=== PATIENT | male | born 2000 | race African-American/Black ===

== ENCOUNTER 2021-06-25 14:08 | Emergency (ER) | payer SELFPAY ==
[~2021-06-25] VITALS: Ht 182.9 cm; Wt 103.8 kg
[2021-06-25 15:00] VITALS: BP 187/80
[2021-06-25 15:08] LABS: HEMOGLOBIN 14.6 g/dl (14.0-18.0); IMMATURE GRANULOCYTES 0.2 % (0.0-5.0); MEAN CORPUSCULAR HGB 28.7 pG CALC (26.0-32.0); MEAN CORPUSCULAR HGB CONC 32.8 g/dL CAL (32.0-36.0); NEUT# 8.73 thou/uL (1.82-7.42); RED BLOOD COUNT 5.09 mill/uL (4.70-6.10); RED CELL DISTRI WIDTH 12.4 % (11.5-15.5)
[2021-06-25 15:11] LABS: HEMATOCRIT 44.5 % (39.0-50.0); MEAN CELL VOLUME 87.4 fL CALC (80.0-100.0); URINE BILIRUBIN - DIPSTICK NEGATIVE (NEGATIVE); URINE BLOOD DIPSTICK NEGATIVE (NEGATIVE); URINE COLOR YELLOW; URINE GLUCOSE - DIPSTICK NEGATIVE (NEGATIVE); URINE KETONE NEGATIVE (NEGATIVE); URINE LEUK ESTERASE NEGATIVE (NEGATIVE); URINE PROTEIN - DIPSTICK NEGATIVE (NEG-TRACE); URINE UROBILINOGEN - DIPSTICK 0.2 E.U./dL (0.2)
[2021-06-25 15:13] LABS: URINE NITRITE - DIPSTICK NEGATIVE (Negative)
[2021-06-25 15:20] LABS: ALBUMIN 4.1 g/dL (3.2-5.0); BUN 8 mg/dL (9-20); BUN/CREATININE RATIO 10 (12-20 (CALC)); CHLORIDE 102 mmol/l (95-108); CREATININE 0.8 mg/dL (0.7-1.3); GFR > 60 ML/MIN (>=60 (CALC)); GFR FOR AFR.AMER. > 60 ML/MIN (>=60 (CALC)); POTASSIUM 4.3 mmol/l (3.5-5.1); SGOT/AST 22 u/l (17-59); SODIUM 140 mmol/l (137-146); TOTAL PROTEIN 8.1 g/dL (6.3-8.2)
[2021-06-25 15:21] LABS: ALKALINE PHOSPHATASE 81 u/l (38-126); ANION GAP 13 (6-22 (CALC)); BILIRUBIN, TOTAL 0.6 mg/dL (0.0-1.4); CARBON DIOXIDE 29 mmol/l (22-30)
[2021-06-25] MEDS ORDERED: FIORICET PO (15:37)
== END 2021-06-25 16:12 | disposition home or self-care (01) | DRG 103 ==
LOC: ED 14:08
PROVIDERS: Emergency Medicine
DX: R51.9 Headache, unspecified (principal); I10 Essential (primary) hypertension

== ENCOUNTER 2022-03-08 06:44 | Emergency (ER) | payer OTHER ==
[~2022-03-08] VITALS: Ht 182.9 cm; Wt 104.5 kg
[~2022-03-08 06:44] MED LIST: FIORICET PO
[2022-03-08 07:10] VITALS: BP 160/97
[2022-03-08] MEDS ORDERED: CLINDAMYCIN300 M1 PO (07:28)
[2022-03-08 07:30] VITALS: BP 172/106
[2022-03-08 07:34] VITALS: BP 172/106
== END 2022-03-08 07:43 | disposition home or self-care (01) | DRG 159 ==
LOC: ED 06:44
DX: K08.89 Other specified disorders of teeth and supporting structures (principal)